=== PATIENT | female | born 1960 | race Caucasian/White ===

== ENCOUNTER 2021-08-24 17:57 | Observation (INO) ==
[2021-08-24] MEDS ORDERED: Isovue-370 500 ML BOTTLE IVP ONE (18:10)
[2021-08-24] MEDS ORDERED: Ondansetron 4 MG/2 ML VIAL IVP ONE (18:19)
[2021-08-24 18:22] LABS: Hematocrit 45.2 % (35.3-44.9); Hemoglobin 15.3 g/dL (11.5-15.4); Mean Corpuscular HGB Conc 33.8 g/dL (31.6-35.5); Mean Corpuscular Hemoglobin 31.5 pg (28.0-33.3); Mean Platelet Volume 8.7 fL (9.4-12.4); Platelet Count 181 K/mcL (140-400); Red Blood Count 4.86 M/mcL (3.82-4.97); Red Cell Distribution Width 12.3 % (11.5-14.5); White Blood Count 8.2 K/mcL (4.3-11.1)
[2021-08-24 18:29] LABS: INR 0.9; Prothrombin Time 10.5 Seconds (9.4-12.1)
[2021-08-24 18:31] LABS: Activated Partial Thrombo Time 33.3 Seconds (26.0-36.0)
[2021-08-24 18:37] LABS: BUN/Creatinine Ratio 8 (6-26); Blood Urea Nitrogen 6 mg/dL (8-23); Calcium 9.4 mg/dL (8.6-10.3); Carbon Dioxide 29 mEq/L (23-29); Chloride 100 mEq/L (98-107); Glucose 171 mg/dL (70-105); Osmolality,Calculated 290 (280-300); Potassium 3.6 mEq/L (3.5-5.1); Sodium 139 mEq/L (136-145); eGFR For African Americans > 60 (> 60); eGFR For Non-African Americans > 60 (> 60)
[2021-08-24 18:45] LABS: Troponin I < 0.03 ng/mL (< 0.04)
[2021-08-24] MEDS ORDERED: Aspirin 81 MG TAB.CHEW PO STA (20:01)
[2021-08-24] MEDS ORDERED: Acetaminophen 325 MG TABLET PO PRN (20:07)
[2021-08-24] MEDS ORDERED: Naloxone 0.4 MG/ML INJ IVP PRN (20:07)
[2021-08-24] MEDS ORDERED: Perflutren Lipid Microsphere 1.3 ML in 0.9 % Sodium Chloride 8.7 ML IVP PRN (20:07)
[2021-08-24] MEDS ORDERED: Ondansetron 4 MG/2 ML VIAL IVP PRN (20:07)
[2021-08-24 22:48] LABS: Bilirubin,Urine Negative (Negative); Blood,Urine Negative (Negative); Clarity,Urine Clear (Clear); Color,Urine Colorless (Yellow); Glucose,Urine (UA) Normal (Normal); Ketones,Urine Negative (Negative); Leukocyte Esterase,Urine Negative (Negative); Nitrite,Urine Negative (Negative); Protein,Urine Negative (Neg-Trace); Specific Gravity,Urine 1.028 (1.010-1.025); Urobilinogen,Urine Normal (Normal)
[2021-08-24 22:58] LABS: Amphetamine Screen,Urine Negative ng/mL (Cutoff=1000); Barbiturate Screen,Urine Negative ng/mL (Cutoff=200); Benzodiazepines Screen,Urine Negative ng/mL (Cutoff=200); Cannabinoid Screen,Urine Negative ng/mL (Cutoff = 50); Cocaine Screen,Urine Negative ng/mL (Cutoff= 300); Opiate Screen,Urine Negative ng/mL (Cutoff=300); Phencyclidine Screen,Urine Negative ng/mL (Cutoff=25)
[2021-08-24] MEDS ORDERED: *HR* OxyCODONE/APAP 5/325 TABLET PO PRN (23:15)
[2021-08-24] MEDS ORDERED: Aspirin 81 MG TAB.CHEW PO ONE (23:30)
[2021-08-24] MEDS: tiZANidine 4 MG TABLET PO PRN (23:53)
[2021-08-25 07:04] VITALS: BP 130/76; PULSE 65; TEMP 98.3; O2SAT 97
[2021-08-25 08:28] LABS: BUN/Creatinine Ratio 12 (6-26); Blood Urea Nitrogen 11 mg/dL (8-23); Calcium 9.2 mg/dL (8.6-10.3); Carbon Dioxide 30 mEq/L (23-29); Chloride 104 mEq/L (98-107); Chol/HDL Ratio 3.9 (0-4.9); Cholesterol 203 mg/dL (< 200); Glucose 135 mg/dL (70-105); HDL Cholesterol 52 mg/dL (40-59); LDL Cholesterol,Calculated 93 mg/dL (< 100); Osmolality,Calculated 293 (280-300); Potassium 4.3 mEq/L (3.5-5.1); Sodium 141 mEq/L (136-145); Triglycerides 290 mg/dL (< 150); eGFR For African Americans > 60 (> 60); eGFR For Non-African Americans > 60 (> 60)
[2021-08-25] MEDS: tiZANidine 4 MG TABLET PO PRN (08:28)
[2021-08-25 08:31] LABS: Hematocrit 42.1 % (35.3-44.9); Mean Corpuscular HGB Conc 33.3 g/dL (31.6-35.5); Mean Corpuscular Hemoglobin 31.8 pg (28.0-33.3); Mean Corpuscular Volume 95.7 fL (83.0-100.0); Mean Platelet Volume 8.9 fL (9.4-12.4); Platelet Count 190 K/mcL (140-400); Red Cell Distribution Width 12.5 % (11.5-14.5); White Blood Count 8.7 K/mcL (4.3-11.1)
[2021-08-25] MEDS ORDERED: Divalproex (24 HR) 500 MG TABLET PO SCH (09:00)
[2021-08-25 09:16] LABS: Estimated Average Glucose 123 mg/dl; Hemoglobin A1C 5.9 %
== END 2021-08-25 13:31 | disposition home or self-care (01) ==
LOC: EMEROOARM 17:57 → 3BNU 17:57 → SUATTDRO 20:10 → 3BNU 20:41
PROVIDERS: ADMIT Internal Medicine; ATTEND Internal Medicine